=== PATIENT | female | born 1975 | race Caucasian/White ===

== ENCOUNTER 2018-01-05 05:05 | Emergency (ER) | payer OTHER ==
[2018-01-05 05:14] VITALS: BP 113/65; PULSE 84; RESP 18; TEMP 98.4
--- NOTE | 2018-01-05 05:48 | XR ---
EXAM: XR Left Hand Complete, 3 or More Views. CLINICAL HISTORY: Reason: Pain TECHNIQUE: Frontal, lateral and oblique views of the left hand. COMPARISON: No relevant prior studies available. FINDINGS: Bones: Unremarkable. No acute fracture. Joints: Unremarkable. No dislocation. Soft tissues: Unremarkable. No radiopaque foreign body. IMPRESSION: Normal left hand.
--- NOTE | 2018-01-05 05:52 | XR ---
EXAM: XR Left Wrist Complete, 3 or More Views. CLINICAL HISTORY: Reason: Pain TECHNIQUE: Frontal, lateral and oblique views of the left wrist. COMPARISON: No relevant prior studies available. FINDINGS: Bones: Unremarkable. No acute fracture. Joints: Unremarkable. No dislocation. Soft tissues: Unremarkable. No radiopaque foreign body. IMPRESSION: Normal left wrist.
--- NOTE | 2018-01-05 06:16 | ED ---
Upper Extremity HPI - General Chief Complaint: Extremity Injury, Upper Stated Complaint: Wrist/hand injury Time Seen by Provider: 01/05/18 05:19 Source: patient Mode of arrival: ambulatory Limitations: no limitations - History of Present Illness Initial Comments: This patient's a 42-year-old woman who presents to be evaluated after a heavy coffee mug fell and landed on her left hand. Patient indicates pain and swelling to the hand just distal to the wrist. She denies any loss of function or sensation. No previous injury. Patient is right-handed. MD Complaint: Injury to:: left, hand Onset/Timin -: hour(s) Other Extremity Injury: Hand: Left Other Injuries: none Handedness: right Place: home Improves With: none Worsens With: movement of extremity Context: direct blow Associated Symptoms: denies other symptoms - Related Data Home Medications Medication Instructions Recorded Confirmed Albuterol Inhaler [Ventolin Hfa 1 - 2 puff INHALATION RT-Q6H PRN 01/05/18 Inhaler] Ipratropium Burgin [Atrovent Hfa] 2 puff INHALATION QID 01/05/18 01/05/18 Allergies Allergy/AdvReac Type Severity Reaction Status Date / Time metronidazole Allergy Anaphylaxis Verified 01/05/18 05:13 Review of Systems ROS Statement: Those systems with pertinent positive or pertinent negative responses have been documented in the HPI. ROS Other: All systems not noted in ROS Statement are negative. Musculoskeletal: Reports: joint swelling, arthralgia Neurological: Denies: weakness, numbness, paresthesias Past Medical History Past Medical History: No Reported History Additional Past Medical History / Comment(s): obstetric history: 3 pregnancies, 2 spontaneous abortions and 1 vaginal delivery. History of Any Multi-Drug Resistant Organisms: None Reported Past Surgical History: Uterine Ablation Past Psychological History: No Psychological Hx Reported Smoking Status: Current every day smoker Past Alcohol Use History: None Reported Past Drug Use History: None Reported General Exam Limitations: no limitations General appearance: alert, in no apparent distress Left Elbow exam: Present: normal inspection, full ROM. Absent: tenderness Forearm Wrist exam: Present: normal inspection, full ROM. Absent: tenderness Hand Wrist exam: Present: tenderness, swelling. Absent: full ROM, abrasion, laceration, ecchymosis, deformity, crepitus Skin exam: Present: warm, dry, intact, normal color. Absent: rash Course Vital Signs 01/05/18 05:09 Temperature 98.4 F Pulse Rate 84 Respiratory 18 Rate Blood Pressure 113/65 O2 Sat by Pulse 98 Oximetry Disposition Clinical Impression: Contusion of hand, left Disposition: HOME SELF-CARE Condition: Good Instructions: Contusion in Adults (ED) Is patient prescribed a controlled substance at d/c from ED?: No Referrals: Mynor Biggs DO [Primary Care Provider] - 1-2 days
== END 2018-01-05 06:22 | disposition home or self-care (01) ==
LOC: EC 05:05
DX: S60.222A Contusion of left hand, initial encounter (principal); F17.200 Nicotine dependence, unspecified, uncomplicated; Z79.899 Other long term (current) drug therapy; Z88.1 Allergy status to other antibiotic agents; W20.8XXA Other cause of strike by thrown, projected or falling object, initial encounter; Y92.009 Unspecified place in unspecified non-institutional (private) residence as the place of occurrence of the external cause
CPT/HCPCS: 99283

== ENCOUNTER → 2018-01-16 | Outpatient (CLI) | payer OTHER ==
--- NOTE | 2018-01-16 22:29 | XR ---
EXAMINATION TYPE: XR hand limited LT DATE OF EXAM: 01/16/2018 CLINICAL HISTORY: Contusion injury to fourth and fifth fingers with persistent pain TECHNIQUE: Frontal and lateral images of the left hand are obtained. COMPARISON: Left hand and wrist x-ray January 05, 2018 FINDINGS: There is no acute fracture/dislocation evident in the left hand. The joint spaces in the l eft hand appear within normal limits. No new suspicious periosteal reaction is seen. The overlying so ft tissue appears unremarkable. IMPRESSION: There is no acute fracture or dislocation in the left hand. There is no significant ward ge from prior x-ray.
== END | disposition home or self-care (01) ==
LOC: RADXRMAIN 16:12
PROVIDERS: ATTEND Family Medicine
DX: M25.542 Pain in joints of left hand (principal)